=== PATIENT | male | born 1960 | race African-American/Black ===

== ENCOUNTER → 2020-05-01 | Outpatient (CLI) | payer OTHER ==
[2015-07-09 03:08] VITALS: BP 154/86
[~2020-05-01] MED LIST: AMLO-187 PO; ASPI325T8 PO; TIZA4TAB2 PO; TRAM50TA PO
--- NOTE | 2020-05-01 15:38 | PDOC1 ---
INITIAL PAIN CONSULT DATE OF SERVICE: DOS: DATE: 05/01/20 TIME: 15:29 CHIEF COMPLAINT: Chief Complaint: Neck and left upper extremity pain and weakness HISTORY OF PRESENT ILLNESS: 59-year-old male presents history of pain and weakness left shoulder and upper extremity starting February 29, 2020 patient reports no specific injury or accident that he is aware of but the pain began to increase in the base the neck and shoulder now is more of a weakness and inability to abduct his shoulder past about 45 to 50 degrees on the left side only. Patient reports the pain is better but the weakness has become more noticeable patient is seeing orthopedist for evaluation of the shoulder as well as neurosurgery do an MRI scan of the cervical spine which shows C4-5 mild to space narrowing with broad-based posterior disc osteophyte formation resulting in minimal flattening of the ventral thecal sac with minimal bilateral uncovertebral osteophyte formation and mild left foraminal narrowing C5-6 shows mild to space narrowing as well with trace of disc bulging without focal disc herniation or significant central canal stenosis with left uncovertebral osteophyte formation resulting in moderate left foraminal narrowing as well. This is true at the C7-T1 with minimal left foraminal narrowing from endplate osteophyte formation as well. 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 Patient has no symptoms on the right upper extremity. Patient has been doing stretching strength exercises on his own without decrease in pain also has been trying [id number] analgesics such as Tylenol and Motrin again with minimal decrease in pain with either of these. PAST MEDICAL HISTORY: PMH: Hypertension, hearing loss, arthritis, kidney stones PREVIOUS SURGERIES: Past Surgical Hx: No previous surgeries CURRENT MEDICATIONS: Current Meds: Active Scripts Medications Dose Route/Sig Max Daily Dose Days Date Category Aspirin 325 Mg Tablet 325 Mg PO 3X/WEEK 05/01/20 Reported Tizanidine Hcl 4 Mg Tablet 4 Mg PO QID PRN 05/01/20 Reported Tramadol Hcl 50 Mg Tablet 50 Mg PO DAILY PRN 05/01/20 Reported Amlodipine Besylate 10 Mg Tablet 10 Mg PO DAILY 05/01/20 Reported ALLERGIES; Allergies: Coded Allergies: No Known Drug Allergies (Unverified , 01/15/14) FAMILY HISTORY: Family Hx: No major medical problems or conditions that he is aware of SOCIAL HISTORY: Social Hx: Patient drinks alcohol about 2 drinks a week, smokes half a pack of cigarettes a day on average does not use any illegal illicit or recreational drugs is lives with his spouse lives locally and [place], [place] 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 REVIEW OF SYSTEMS: ROS: Positive for those items mentioned in history of present illness, all systems are reviewed, otherwise negative, is complete full and well-documented on patient's chart PHYSICAL EXAM: VS: Blood pressure is 144/94 pulse 88 respirations 16 temperature is 98.2 F height is 5 feet 10 inches weight is 242 pounds PE: PHYSICAL EXAMINATION: GENERAL: The patient is awake, alert, oriented, appropriate, very pleasant demeanor HEENT: Shows normocephalic, atraumatic. Extraocular movements are intact and symmetrical. Oral cavity: Mucous membranes moist and pink. Dentition is intact. NECK: Shows anterior throat supple without palpable lymphadenopathy noted. Swallow reflex symmetrical. CHEST: Shows normal on inspection. Breath sounds are clear bilaterally, no rales rhonchi wheezes auscultated. HEART: Shows S1, S2 clear. No murmurs auscultated. ABDOMEN: Soft, nontender, nondistended, obese. No palpable organomegaly is noted. No rebound or guarding demonstrated. BACK: Shows spine grossly in the midline. Normal-appearing cervical lordotic curvature. Cervical spine shows normal-appearing paraspinous musculature and symmetrical with mild tenderness with palpation in the inferior aspect of the cervical paraspinous posture on the left only but without trigger points without asymmetry without atrophy or hypertrophy. There is slightly increased thoracic kyphosis, some minor flattening of the lumbar lordotic curvature. EXTREMITIES: Upper extremities show deep tendon reflexes 2+ in the bicep and tricep tendons. Motor exam is 5 on a scale of 5 with right rib strength, biceps and triceps flexion and 5/5 on the left. Patient's left shoulder shows inability to abduct past about 45 degrees but is not significantly painful. Right side shows full range of motion. Patient is unable to raise his arm over his head as well on the left side without assistance but again without increased pain. Patient shows no significant tenderness with palpation over the anterior posterior lateral deltoid likewise no pain over the supraspinatus or infraspinatus musculature as well. Peripheral pulses are 2+ radial. No peripheral edema is noted bilaterally.. SKIN: Shows warm and dry, good turgor. No edema. No sores, rashes or bruising throughout. IMPRESSION: Impression: 59-year-old male with 2-month history pain left shoulder and upper extremity with significant motor weakness and radicular component C4-5 and C5-6 MRI scan cervical spine as noted Arthritis Hypertension Plan: Options were discussed with the patient including several medical management physical therapy as well as interventional techniques. Patient would like to pursue interventional techniques as he has been doing physical therapy exercises stretching strengthening on his own without significant increase in mobility or decrease in pain. We discussed a cervical epidural steroid injection using description as well as anatomical models to describe the procedure. Patient will wait for his preauthorization with his insurance provider and we will have him return for cervical epidural steroid injection at that time. In the meantime patient will continue with strengthening stretching exercises and trying to keep the mobility as best he can with the left upper extremity and neck. JULIA HARKINS MD May 01, 2020 15:38
== END | disposition home or self-care (01) ==
LOC: PNCL 13:12
PROVIDERS: ATTEND Anesthesiology
DX: M54.2 Cervicalgia (principal); M79.602 Pain in left arm; R53.1 Weakness; I10 Essential (primary) hypertension; M19.90 Unspecified osteoarthritis, unspecified site; F17.210 Nicotine dependence, cigarettes, uncomplicated; Z79.82 Long term (current) use of aspirin; Z79.899 Other long term (current) drug therapy; Z98.890 Other specified postprocedural states
CPT/HCPCS: G0463

== ENCOUNTER → 2020-05-02 | Outpatient (CLI) | payer OTHER ==
[2015-07-09 03:08] VITALS: BP 154/86
[~2020-05-02] MED LIST changes: +IOHEXOL 180 MG/ML 10 ML VIAL. ONE; +methylPREDNISolone ACETATE 40 MG/ML VIAL. ONE; +methylPREDNISolone ACETATE 80 MG/ML VIAL. ONE
--- NOTE | 2020-05-02 10:23 | PDOC ---
Progress Note - Pain Clinic Date of Service: DOS: DATE: 05/02/20 TIME: 10:18 Diagnosis: Dx: Cervical radiculopathy with cervical degenerative disc disease History or Present Illness: HPI: 59-year-old male returns after evaluation yesterday and preauthorization which was obtained later yesterday for cervical epidural steroid injection. Patient reports still significant weakness in the left shoulder and upper extremity would like to proceed today. Patient reports his pain is a 2 on a scale of 10 overnight the worst least an average is 2 this morning but his weakness and fatigability of the left shoulder and arm is his main complaint. Patient repo rts no new motor or sensory deficits no new changes since yesterday. Physical Exam: VS: Blood pressure 160/98 pulse is 84 respirations 16 temperature is 98.1 F height is 5 feet 10 inches weight is 242 pounds PE: PHYSICAL EXAMINATION: GENERAL: The patient is awake, alert, oriented, appropriate, very pleasant demeanor HEENT: Shows normocephalic, atraumatic. Extraocular movements are intact and symmetrical. NECK: Shows anterior throat supple without palpable lymphadenopathy noted. CHEST: Shows normal on inspection. BACK: Shows spine grossly in the midline. Normal-appearing cervical lordotic curvature. Cervical paraspinous muscles show symmetrical on inspection with palpation some mild tenderness in the inferior aspect of the cervical paraspinous muscles on the left and the superior medial trapezius but only diffusely without trigger points or radiation. Patient has full rotation motion cervical spine both laterally as well as extension flexion without significant increase in pain or discomfort. There is slightly increased thoracic kyphosis, some minor flattening of the lumbar lordotic curvature. EXTREMITIES: Upper extremities show deep tendon reflexes 2+ in the biceps and triceps tendons. Motor exam is 5 on a scale of 5 with right strength, biceps and triceps flexion and 5/5 on the left. Peripheral pulses are 2+ radial. No peripheral edema is noted bilaterally. SKIN: Shows warm and dry, good turgor. No edema. No sores, rashes or bruising throughout. Procedure: Procedure: Options were discussed with the patient. Patient's old chart was reviewed his current medication regimen updated current review of systems updated today as well. We will proceed with a cervical epidural steroid injection today with fluoroscopic guidance. Risks were discussed including but not limited to: Bleeding, infection, possibility of epidural hematoma and subsequent neurological compromise, dural puncture, headaches, spinal cord and/or nerve damage, side effects of steroid medication, and poor results regarding pain control. Patient understands wished to proceed. Patient will return to clinic in approximate 2 weeks for follow-up was counseled as to return appointment activity level and side effects to be aware of. Medication Injected: Med Injected: Procedure cervical epidural steroid injection at the C6-7 level, using local anesthetic under sterile prep and drape using C-arm fluoroscopic guidance under local anesthesia medications injected ; 120 mg Depo-Medrol + 5 mL normal saline and 2 mL contrast; condition at discharge is stable patient tolerated procedure well. and had no complications Condition at Discharge: Condition at Discharge: Condition at discharge is stable, patient tolerated the procedure well and had no complications. JULIA HARKINS MD May 02, 2020 10:23
== END | disposition home or self-care (01) ==
LOC: PNCL 09:08
PROVIDERS: ATTEND Anesthesiology
DX: M50.10 Cervical disc disorder with radiculopathy, unspecified cervical region (principal); F17.210 Nicotine dependence, cigarettes, uncomplicated; Z79.82 Long term (current) use of aspirin; Z79.899 Other long term (current) drug therapy
CPT/HCPCS: 62321; J1030; J1040; Q9965

== ENCOUNTER → 2020-05-20 | Outpatient (CLI) | payer OTHER ==
[2015-07-09 03:08] VITALS: BP 154/86
--- NOTE | 2020-05-20 09:26 | PDOC ---
Progress Note - Pain Clinic Date of Service: DOS: DATE: 05/20/20 TIME: 09:23 Diagnosis: Dx: Cervical radiculopathy with cervical degenerative disc disease History or Present Illness: HPI: 59-year-old male returns follow-up status post cervical epidural to injection x1. 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 Patient rates the pain a 2 on scale 10 is worst average and least and is a 2 today. Patient reports no new motor or sensory deficits no new changes. Physical Exam: VS: Blood pressure is 180/118 pulse 90 respirations 18 temperature 90.1 F height 5 feet 10 inches weight is 242 pounds PE: PHYSICAL EXAMINATION: GENERAL: The patient is awake, alert, oriented, appropriate, very pleasant demeanor HEENT: Shows normocephalic, atraumatic. Extraocular movements are intact and symmetrical. Oral cavity: Mucous membranes moist and pink. NECK: Shows anterior throat supple without palpable lymphadenopathy noted. Swallow reflex symmetrical. CHEST: Shows normal on inspection. Breath sounds are clear bilaterally. HEART: Shows S1, S2 clear. No murmurs. ABDOMEN: Soft, nontender, nondistended. No palpable organomegaly is noted. No rebound or guarding demonstrated. BACK: Shows spine grossly in the midline. Normal-appearing cervical lordotic curvature. Cervical paraspinous muscles show symmetrical with inspection on palpation some moderate tenderness diffusely but only in the inferior aspect the cervical paraspinous muscles more on the left than the right but without asymmetry without atrophy or hypertrophy no trigger points or radiation. Patient shows good rotation motion of the cervical spine both laterally as well as full extension full forward flexion without significant increase in pain. There is slightly increased thoracic kyphosis, some minor flattening of the lumbar lordotic curvature. EXTREMITIES: Upper extremities show deep tendon reflexes 2+ in the biceps and triceps tendons. 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 Peripheral pulses are 2+ radial. No peripheral edema is noted bilaterally. Upper extremities are warm and dry to touch, equal in color and appearance. SKIN: Shows warm and dry, good turgor. No edema. No sores, rashes or bruising throughout. Procedure: Procedure: Options were discussed with the patient. Patient will chart reviews his current medication regimen updated current review of systems updated today as well. We will proceed with a second in a series cervical epidural steroid injection today. Risks were discussed including but not limited to: Bleeding, infection, possibility of epidural hematoma and subsequent neurological compromise, dural puncture, headaches, spinal cord and/or nerve damage, side effects of steroid medication, and poor results regarding pain control. Patient understands wished to proceed. Patient will return to clinic in approximate 2 weeks for follow-up, was counseled as return appointment activity level and side effects to be aware of. Medication Injected: Med Injected: Procedure cervical epidural steroid injection at the C6-7 level, using local anesthetic under sterile prep and drape using C-arm fluoroscopic guidance under local anesthesia medications injected ; 120 mg Depo-Medrol + 5 mL normal saline and 2 mL contrast; condition at discharge is stable patient tolerated procedure well. and had no complications Condition at Discharge: Condition at Discharge: Condition at discharge is stable, patient tolerated procedure well and had no complications. JULIA HARKINS MD May 20, 2020 09:26
== END | disposition home or self-care (01) ==
LOC: PNCL 08:29
PROVIDERS: ATTEND Anesthesiology
DX: M50.123 Cervical disc disorder at C6-C7 level with radiculopathy (principal); Z98.890 Other specified postprocedural states
CPT/HCPCS: 62321; J1030; J1040; Q9965

== ENCOUNTER 2020-10-11 12:49 | Emergency (ER) | payer OTHER ==
[~2020-10-11] VITALS: Ht 177.8 cm; Wt 110.4 kg
[~2020-10-11 12:49] MED LIST changes: -IOHEXOL 180 MG/ML 10 ML VIAL. ONE; -methylPREDNISolone ACETATE 40 MG/ML VIAL. ONE; -methylPREDNISolone ACETATE 80 MG/ML VIAL. ONE
[2020-10-11 14:36] VITALS: BP 174/83
[2020-10-11] MEDS ORDERED: KETOROLAC 30 MG/ML VIAL. IM ONE (15:00)
[2020-10-11] MEDS ORDERED: ORPHENADRINE CITRATE 60 MG/2 ML VIAL. IM ONE (15:00)
--- NOTE | 2020-10-11 15:56 | RAD ---
EXAM: Lumbar spine CT without contrast. HISTORY: Lower back pain. Right sided sciatica. TECHNIQUE: Computed tomographic images of the lumbar spine were obtained without contrast. Multiplana r reformatting was performed. *One or more of the following individualized dose reduction techniques were utilized for this examina tion: 1. Automated exposure control. 2. Adjustment of the mA and/or kV according to patient size. 3. Use of iterative reconstruction technique. COMPARISON: None. FINDINGS: There is mild lumbar scoliosis. There is multilevel endplate remodeling. There is and mild disc space narrowing at L2-L3 and L3-L4. There is no fracture or suspicious osseous lesion. There is degenerative spurring and there are bridging osteophytes involving the left sacroiliac joint. There a re suspected erosive changes involving the right sacroiliac joint. At L1-L2, there is mild bilateral facet arthropathy. There is no stenosis. At L2-L3, there is a right lateral predominant disc bulge and endplate osteophytosis. There is mild l eft greater than right facet arthropathy. There is mild right foraminal stenosis. There is mild centr al canal stenosis. At L3-L4, there is a left lateral predominant disc bulge and endplate osteophytosis. There is mild le ft facet arthropathy. There is mild right and moderate left foraminal stenosis. There is mild central canal stenosis. At L4-L5, there is a left foraminal disc osteophyte complex superimposed on a left lateral predominan t disc bulge and endplate remodeling. There is mild to moderate right and moderate left foraminal magan nosis. There is mild to moderate central canal stenosis. At L5-S1, there is a disc bulge. There is mild right foraminal stenosis. IMPRESSION: 1. Multilevel degenerative change involving the lumbar spine, described in detail above. This results in stenosis at the aforementioned levels. 2. Degenerative change involving the sacroiliac joints and superimposed right sacroiliac joint erosio ns suggesting a component of sacroiliitis. Electronically signed by: Lizy Shukla MD (10/11/2020 3:54 PM) [id number]
--- NOTE | 2020-10-11 16:08 | ED.ADGEN ---
Past Medical History Past Medical History: High Cholesterol, Hypertension Past Surgical History: No Surgical History Smoking Status: Current Every Day Smoker Alcohol Use: Occasionally Drug Use: None General Adult EDM: Chief Complaint: LOWER EXT PAIN HPI: HPI: Patient is a 60 year old AA male, accompanied by his , who presents emergency department with complaints of right lower back pain that radiates down his right leg with a numb and tingling sensation down the lateral aspect of his leg that began 4 days ago. Patient denies any saddle anesthesia or loss of bowel/bladder control. He states he was seen at his primary care doctors office a few days ago where he had negative x-rays and received a shot. Patient reports he was also prescribed hydrocodone, he has been taking the medication with no relief of his pain. He denies any fever, cough, shortness of breath, abdominal pain, nausea, vomiting, diarrhea, body aches, or fatigue. 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 He denies any known injury or recent falls. He currently rates pain a 6 out of 10 on the pain scale at rest, the pain increases to 10 out of 10 with movement. Review of Systems: Review of Systems: Complete ROS is negative unless otherwise noted in HPI. Current Medications: Current Medications Medications (Trade) Dose Ordered Sig/[facility] Start Time Stop Time Status Last Admin Dose Admin Ketorolac Tromethamine (Toradol 30mg Vial) 30 mg 1X ONCE 10/11/20 15:00 10/11/20 15:08 DC 10/11/20 15:23 30 MG Orphenadrine Citrate (Norflex) 60 mg 1X ONCE 10/11/20 15:00 10/11/20 15:08 DC 10/11/20 15:23 60 MG Allergies: Allergies: Allergies Coded Allergies Type Severity Reaction Last Updated Verified No Known Drug Allergies 01/15/14 No Physical Exam: PE: See Above Constitutional: Well developed, well nourished, no acute distress, non-toxic appearance. [] HENT: Normocephalic, atraumatic, bilateral external ears normal, nose normal. [] Eyes: PERRLA, EOMI, conjunctiva normal, no discharge. [] Neck: Normal range of motion, no stridor. [] Cardiovascular:Heart rate regular rhythm Lungs & Thorax: Respirations even and unlabored, no retractions, no respiratory distress Abdomen: soft, no tenderness Back: No bony tenderness or deformity, increased pain with right straight leg lift, Skin: Warm, dry, no erythema, no rash. [] Extremities: No cyanosis, ROM intact, no edema. [] Neurologic: Alert and oriented X 3, normal motor, normal sensory, no focal deficits noted. [] Psychologic: Affect normal, judgement normal, mood normal. [] Current Patient Data: Vital Signs: Vital Signs Date Time Temp Pulse Resp B/P (MAP) Pulse Ox O2 Delivery O2 Flow Rate FiO2 10/11/20 14:36 97.9 85 18 174/83 (113) 97 Room Air 97.9 EKG: EKG: [] Heart Score: C/O Chest Pain: No Risk Scores: Score 0 - 3: 2.5% MACE over next 6 weeks - Discharge Home Score 4 - 6: 20.3% MACE over next 6 weeks - Admit for Clinical Observation Score 7 - 10: 72.7% MACE over next 6 weeks - Early Invasive Strategies Radiology/Procedures: Radiology/Procedures: PROCEDURE: CT LUMBAR SPINE WO CONTRAST EXAM: Lumbar spine CT without contrast. HISTORY: Lower back pain. Right sided sciatica. TECHNIQUE: Computed tomographic images of the lumbar spine were obtained without contrast. Multiplanar reformatting was performed. *One or more of the following individualized dose reduction techniques were utilized for this examination: 1. Automated exposure control. 2. Adjustment of the mA and/or kV according to patient size. 3. Use of iterative reconstruction technique. COMPARISON: None. FINDINGS: There is mild lumbar scoliosis. There is multilevel endplate remodeling. There is and mild disc space narrowing at L2-L3 and L3-L4. There is no fracture or suspicious osseous lesion. There is degenerative spurring and there are bridging osteophytes involving the left sacroiliac joint. There are suspected erosive changes involving the right sacroiliac joint. At L1-L2, there is mild bilateral facet arthropathy. There is no stenosis. At L2-L3, there is a right lateral predominant disc bulge and endplate osteophytosis. There is mild left greater than right facet arthropathy. There is mild right foraminal stenosis. There is mild central canal stenosis. At L3-L4, there is a left lateral predominant disc bulge and endplate osteophytosis. There is mild left facet arthropathy. There is mild right and moderate left foraminal stenosis. There is mild central canal stenosis. At L4-L5, there is a left foraminal disc osteophyte complex superimposed on a left lateral predominant disc bulge and endplate remodeling. There is mild to moderate right and moderate left foraminal stenosis. There is mild to moderate central canal stenosis. At L5-S1, there is a disc bulge. There is mild right foraminal stenosis. IMPRESSION: 1. Multilevel degenerative change involving the lumbar spine, described in detail above. This results in stenosis at the aforementioned levels. 2. Degenerative change involving the sacroiliac joints and superimposed right sacroiliac joint erosions suggesting a component of sacroiliitis. Electronically signed by: Lizy Shukla MD (10/11/2020 3:54 PM) [id number] [] Course & Med Decision Making: Course & Med Decision Making Pertinent Labs and Imaging studies reviewed. (See chart for details) [] Dragon Disclaimer: Dragon Disclaimer: This electronic medical record was generated, in whole or in part, using a voice recognition dictation system. Departure Departure Impression: Primary Impression: Low back pain Disposition: 01 HOME / SELF CARE / HOMELESS Condition: STABLE Referrals: HALIMA LANIER (PCP) Patient Instructions: Back Pain, Adult, [id number] Additional Instructions: Fill the prescription(s) and use as directed. Apply heat or ice for to sore areas as needed for comfort. Activity as tolerated. Follow up with your primary care doctor this week for further evaluation and treatment, return to the ER if symptoms worsen or you develop a fever. Scripts Naproxen (NAPROXEN) 500 Mg Tablet 1 TAB PO BID PRN for PAIN for 10 Days, #20 TAB 0 Refills Prov: SHERYL BAE APRN 10/11/20 Problem Qualifiers Primary Impression: Low back pain Chronicity: acute Back pain laterality: midline Sciatica presence: with sciatica Sciatica laterality: sciatica of right side Qualified Codes: M54.41 - Lumbago with sciatica, right side SHERYL BAE FISHER NET October 11, 2020 16:08
[2020-10-11] MEDS ORDERED: NAPR-514 PO (16:19)
== END 2020-10-11 16:29 | disposition home or self-care (01) ==
LOC: ER 12:49
DX: M54.41 Lumbago with sciatica, right side (principal); E78.00 Pure hypercholesterolemia, unspecified; I10 Essential (primary) hypertension; F17.200 Nicotine dependence, unspecified, uncomplicated
CPT/HCPCS: 72131; 96372; 99284; J1885; J2360

== ENCOUNTER → 2020-10-28 | Outpatient (CLI) | payer OTHER ==
[2020-10-11 14:36] VITALS: BP 174/83
[~2020-10-28] MED LIST changes: +CRESTOR40 MG PO; +MELO15TA23 PO; +NAPR-514 PO; +TADA5TAB PO
--- NOTE | 2020-10-28 15:01 | KCIC ---
EXAM: Lumbar spine MRI without contrast. HISTORY: Radiculopathy. TECHNIQUE: Multiplanar, multisequence magnetic resonance imaging of the lumbar spine was performed wi thout contrast. COMPARISON: 10/11/2020. FINDINGS: There is mild lumbar scoliosis. There is no significant listhesis. There is multilevel endp late remodeling with disc space narrowing and disc desiccation. There is relative preservation of the disc spaces at L1-L2 and L5-S1. There are few osseous hemangiomas. There is no suspicious osseous le catarina. There is no fracture. There is prominent epidural fat at the lumbar levels, primarily the lumbo sacral junction. The conus terminates at L1. At L1-L2, there is no stenosis. At L2-L3, there is a right lateral predominant disc bulge and endplate osteophytosis. There is mild b ilateral facet arthropathy. There is prominent epidural fat. There is no stenosis. At L3-L4, there is a left foraminal to extra foraminal disc osteophyte complex superimposed on a left lateral predominant disc bulge and endplate osteophytosis. There is mild bilateral facet arthropathy . There is prominent epidural fat. There is mild left greater than right foraminal stenosis with abut ment the exiting left greater than right L3 nerve roots. There is mild central canal stenosis. At L4-L5, there are broad-based bilateral foraminal disc protrusions and annular tears superimposed o n a disc bulge and endplate remodeling. There is mild bilateral facet arthropathy. There is prominent epidural fat. There is mild bilateral foraminal stenosis with abutment the exiting left greater than right L4 nerve roots. At L5-S1, there is prominent epidural fat resulting in mild narrowing of the thecal sac. IMPRESSION: 1. Multilevel degenerative change involving the lumbar spine, described in detail above. This results in mild foraminal and central canal stenosis at the aforementioned levels. 2. No acute osseous finding. Electronically signed by: Lizy Shukla MD (10/28/2020 2:59 PM) [id number]
== END ==
LOC: KCIC MRI 13:53
PROVIDERS: ATTEND Neurological Surgery
DX: M47.26 Other spondylosis with radiculopathy, lumbar region (principal); M48.07 Spinal stenosis, lumbosacral region
CPT/HCPCS: 72148

== ENCOUNTER → 2020-11-04 | Outpatient (CLI) | payer OTHER ==
[2020-10-11 14:36] VITALS: BP 174/83
--- NOTE | 2020-11-04 13:46 | PDOC ---
Progress Note - Pain Clinic Date of Service: DOS: DATE: 11/04/20 TIME: 13:38 Diagnosis: Dx: Lumbar radiculopathy with lumbar degenerative disease and lumbar spinal stenosis Cervical radiculopathy with cervical degenerative disc disease History or Present Illness: HPI: 60-year-old male returns with complaints of pain low back and right lower extremity since October 09, 2020. Patient reports he was working and getting out of his cab of his truck noticed significant pain in the low back and radiating to the right lower extremity patient reports that radiating part was coming more noticeable and has had significant radiation of the posterior gluteus posterior lateral thigh lateral anterior thigh anteromedial thigh medial lower leg into the calf and medial calf as well as the foot and the sole of the foot patient reports is a 10 on scale 10 is worst over the past week 10 on average 10 its least is a 10 today patient scribes aching sharp shooting dull and aching in the back cramping and stabbing in the back with radiating pain in the right lower extremity as noted. Patient reports its worse with changing positions standing standing upright sitting for prolonged periods and is disturbing sleep significantly about every 2-3 hours. Patient has done physical therapy in the past and is doing the stretching strength exercises currently that he learned when he had some issues with his neck and shoulders and is currently doing some stretching with the low back daily also trying to walk daily but is becoming more difficult for him to do this because of the pain. Patient describes the pain as radiating in the L4-5 dermatomal distribution in the right lower extremity with radicular symptoms. 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 Patient is been taking [id number] ibuprofen as well as naproxen and also Tylenol has not been helping very significantly. Patient was given Percocet by his primary physician which was not very helpful as well. Physical Exam: VS: Blood pressure is 157/109 pulse 81 respirations are 18 height 5 feet 10 inches weight is 240 pounds PE: PHYSICAL EXAMINATION: GENERAL: The patient is awake, alert, oriented, appropriate, very pleasant demeanor HEENT: Shows normocephalic, atraumatic. Extraocular movements are intact and symmetrical. Oral cavity: Mucous membranes moist and pink. Dentition is intact. NECK: Shows anterior throat supple without palpable lymphadenopathy noted. Swallow reflex symmetrical. CHEST: Shows normal on inspection. Breath sounds are clear bilaterally, no rales or rhonchi auscultated. HEART: Shows S1, S2 clear. No murmurs auscultated. ABDOMEN: Soft, nontender, nondistended, obese. No palpable organomegaly is noted. BACK: Shows spine grossly in the midline. Normal-appearing cervical lordotic curvature. There is slightly increased thoracic kyphosis, some minor flattening of the lumbar lordotic curvature. Lumbar paraspinous muscles show symmetrical on inspection, on palpation shows some moderate tenderness diffusely throughout the upper, middle and lower distribution of the paraspinous muscles without specific trigger points, without radiation of pain. The patient has good rotational motion of the lumbar spine, both laterally as well as extension and flexion without significant difficulty. No tenderness over the spinous processes, sacrum or sacroiliac regions. EXTREMITIES: Lower extremities show deep tendon reflexes 2+ in the patellar and tendo calcaneus tendons. Motor exam is 4 on a scale of 5 with right dorsiflexion, extension, quadriceps and hamstring flexion and 5/5 on the left. Peripheral pulses are 1+ posterior tibial. No peripheral edema is noted bilaterally. Lower extremities are warm and dry to touch, equal in color and appearance. Straight leg raise noted to be positive on the right about 40 degrees, left side is negative. Gaenslen's and Niles's maneuvers are negative bilaterally. SKIN: Shows warm and dry, good turgor. No edema. No sores, rashes or bruising throughout. Procedure: Procedure: Options were discussed with the patient. Patient's old chart was reviewed his current medication regimen updated current review of systems updated today as well. We will preauthorize patient for lumbar epidural steroid injection translaminar approach at the L4-5 level. Patient has radicular symptoms in the L4-5 distribution of the right lower extremity despite doing physical therapy stretches and strength exercises and artm-svo-eizgbeh as well as prescription medications. Recommended patient continue with the stretching strength exercises and gxar-far-lcfbayd analgesics especially nonsteroidal anti- inflammatory drugs. Once approved we will have patient return for a translaminar L4-5 level lumbar epidural steroid injection. Medication Injected: Med Injected: None Condition at Discharge: Condition at Discharge: Condition at discharge is stable. JULIA HARKINS MD Nov 04, 2020 13:46
== END | disposition home or self-care (01) ==
LOC: PNCL 12:34
PROVIDERS: ATTEND Anesthesiology
DX: M51.16 Intervertebral disc disorders with radiculopathy, lumbar region (principal); M48.061 Spinal stenosis, lumbar region without neurogenic claudication; M50.10 Cervical disc disorder with radiculopathy, unspecified cervical region; F17.210 Nicotine dependence, cigarettes, uncomplicated; Z79.82 Long term (current) use of aspirin; Z79.899 Other long term (current) drug therapy; Z72.89 Other problems related to lifestyle
CPT/HCPCS: 99212; G0463

== ENCOUNTER → 2020-11-07 | Outpatient (CLI) | payer OTHER ==
[2020-10-11 14:36] VITALS: BP 174/83
[~2020-11-07] MED LIST changes: +IOHEXOL 180 MG/ML 10 ML VIAL. ONE; +methylPREDNISolone ACETATE 40 MG/ML VIAL. ONE; +methylPREDNISolone ACETATE 80 MG/ML VIAL. ONE
--- NOTE | 2020-11-07 14:01 | PDOC ---
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 Patient describes the pain is radiating in the right leg and follows roughly an L4 and L5-S1 dermatomal distribution in the right lower extremity. Patient reports exacerbated by standing changing positions bending stooping getting up and down out of his truck at work as well as weightbearing and standing for prolonged periods greater than 10 to 15 minutes. Patient reports is better with sitting or laying down still awakens him from sleep about 2-3 times a night patient rates pain is a 10 on scale 10 at all times worst least and average over the past week and is a 10 today. Patient reports no new motor or sensory deficits no bowel or bladder incontinence but still significant pain in the low back right lower extremity described as tingling stabbing in the back sharp and shooting in the lower extremity that can be severe and unbearable with activity especially bending stooping climbing putting all his weight on his right lower extremity and driving. Physical Exam: VS: Blood pressure is 150/98 pulse 94 respirations are 16 temperature 98.1 F height is 5 feet 10 inches weight is 236 pounds PE: PHYSICAL EXAMINATION: GENERAL: The patient is awake, alert, oriented, appropriate, very pleasant in demeanor. HEENT: Shows normocephalic, atraumatic. Extraocular movements are intact and symmetrical. Oral cavity: Mucous membranes moist and pink. NECK: Shows anterior throat supple without palpable lymphadenopathy noted. Swallow reflex symmetrical. CHEST: Shows normal on inspection. Breath sounds are clear bilaterally. HEART: Shows S1, S2 clear. No murmurs auscultated. ABDOMEN: Soft, nontender, nondistended. BACK: Shows spine grossly in the midline. Normal-appearing cervical lordotic curvature. There is slightly increased thoracic kyphosis, some minor flattening of the lumbar lordotic curvature. Lumbar paraspinous muscles show symmetrical on inspection, on palpation shows some moderate tenderness diffusely throughout the upper, middle and lower distribution of the paraspinous muscles without specific trigger points, without radiation of pain. The patient has good rotat ional motion of the lumbar spine, both laterally as well as extension and flexion with moderate tenderness and pain with rotation both laterally greater than 10 degrees as well as extension and forward flexion with pain reported in all directions of movement of the lumbar spine. No tenderness over the spinous processes, sacrum or sacroiliac regions. EXTREMITIES: Lower extremities show deep tendon reflexes 5 in the patellar and tendo calcaneus tendons. Motor exam is 4 on a scale of 5 with right dorsiflexio n, extension, quadriceps and hamstring flexion and 5/5 on the left. Peripheral pulses are 1+ posterior tibial. No peripheral edema is noted bilaterally. Lower extremities are warm and dry to touch, equal in color and appearance. . SKIN: Shows warm and dry, good turgor. No edema. No sores, rashes or bruising throughout. Procedure: Procedure: Options discussed with the patient. Patient chart was reviewed his his current medication regimen updated current review of systems updated today as well. We will proceed with a lumbar epidural steroid injection stable fluoroscopic guidance. Risks were discussed including but not limited to: Bleeding, infection, possibility of epidural hematoma and subsequent neurological compromise, dural puncture, headaches, spinal cord and/or nerve damage, side effects of steroid medication, and poor results regarding pain control. Patient understands and wished to proceed. Patient will return to the clinic in approximate 2 weeks for follow-up, was counseled as return appointment activity level and side effects to be aware of. Patient is encouraged to follow restrictions while at work including: no extended standing greater than 10 minutes, no stooping, bending, rotation of the back while lifting, not to lift greater than 15 pounds, no climbing, crouching, crawling. Patient will return to clinic in approximately 1-1/2 weeks for reevaluation and potential reinjection at that time if still significantly symptomatic with a radicular pain in the low back and right lower extremity. Medication Injected: Med Injected: Procedure is lumbar epidural steroid injection under local anesthetic using sterile prep and drape at the L4-5 level using C-arm fluoroscopic guidance in both AP and lateral views medications injected is 120 mg Depo-Medrol +10mL preservative-free normal saline and 2 mL contrast- condition at discharge is stable patient tolerated procedure well had no complications. Condition at Discharge: Condition at Discharge: Condition at discharge stable, patient tolerated the procedure well and had no complications. JULIA HARKINS MD Nov 07, 2020 14:01
--- NOTE | 2020-11-07 14:01 | PDOC4 ---
PROCEDURE Procedure Patient was consented for lumbar epidural steroid injection. Risks were dis cussed including but not limited to: Bleeding, infection, possibility of epidural hematoma and subsequent neurological compromise, dural puncture, headaches, spinal cord and/or nerve damage, side effects of steroid medication, and poor results regarding pain control. Patient understands and wished to proceed. Procedure is lumbar epidural steroid injection under local anesthetic using sterile prep and drape at the L4-5 level using C-arm fluoroscopic guidance in both AP and lateral views medications injected is 120 mg Depo-Medrol +10mL preservative-free normal saline and 2 mL contrast- condition at discharge is stable patient tolerated procedure well had no complications. JULIA HARKINS MD Nov 07, 2020 14:01
== END | disposition home or self-care (01) ==
LOC: PNCL 13:07
PROVIDERS: ATTEND Anesthesiology
DX: M51.16 Intervertebral disc disorders with radiculopathy, lumbar region (principal); M50.10 Cervical disc disorder with radiculopathy, unspecified cervical region; M48.061 Spinal stenosis, lumbar region without neurogenic claudication; F17.210 Nicotine dependence, cigarettes, uncomplicated; Z79.82 Long term (current) use of aspirin; Z79.899 Other long term (current) drug therapy; Z72.89 Other problems related to lifestyle
CPT/HCPCS: 62323; J1030; J1040; Q9965

== ENCOUNTER → 2020-11-19 | Outpatient (CLI) | payer OTHER ==
--- NOTE | 2020-11-19 15:38 | PDOC ---
Progress Note - Pain Clinic Date of Service: DOS: DATE: 11/19/20 TIME: 15:26 Diagnosis: Dx: Cervical radiculopathy with cervical degenerative disease Lumbar radiculopathy lumbar degenerative disease lumbar spinal stenosis History or Present Illness: HPI: 60-year-old male returns for follow-up status post lumbar epidural straight injection x1. Patient reports about 30% improvement overall in the low back and right lower extremity pain patient reports initially doing much better with walking doing household activities travel with greater ease doing work activities but over the past week or so the pain is returned still better than it was but still significant in the right lower extremity posterior gluteus posterior lateral thigh anterior thigh medial thigh medial lower leg and lateral lower leg patient describes as aching and sharp in the back shooting in the leg tingling and burning and stabbing in the back and legs well can be severe with walking and standing. Patient reports no new motor or sensory deficits no new bowel or bladder incontinence awaken from sleep about every 4-5 hours. Physical Exam: VS: Blood pressure is 143/93 pulse 87 respirations 18 temperature 98.2 F height is 5 feet 10 inches weight is 258 pounds PE: PHYSICAL EXAMINATION: GENERAL: The patient is awake, alert, oriented, appropriate, very pleasant in demeanor HEENT: Shows normocephalic, atraumatic. Extraocular movements are intact and symmetrical. Oral cavity: Mucous membranes moist and pink. Dentition is intact. NECK: Shows anterior throat supple without palpable lymphadenopathy noted. Swallow reflex symmetrical. CHEST: Shows normal on inspection. Breath sounds are clear bilaterally, no rales or rhonchi. HEART: Shows S1, S2 clear. No murmurs auscultated. ABDOMEN: Soft, nontender, nondistended, obese. BACK: Shows spine grossly in the midline. Normal-appearing cervical lordotic curvature. There is slightly increased thoracic kyphosis, some flattening of the lumbar lordotic curvature. Lumbar paraspinous muscles show symmetrical on inspection, on palpation shows some moderate tenderness diffusely throughout the upper, middle and lower distribution of the paraspinous muscles without specific trigger points, without radiation of pain. The patient has good rotational motion of the lumbar spine, both laterally as well as extension and flexion without significant difficulty. No tenderness over the spinous processes, sacrum or sacroiliac regions. EXTREMITIES: Lower extremities show deep tendon reflexes 2 in the patellar and tendo calcaneus tendons. Motor exam is 4 on a scale of 5 with right dorsiflexion, extension, quadriceps and hamstring flexion and 5/5 on the left. Peripheral pulses are 1+ posterior tibial. No peripheral edema is noted bilaterally. Lower extremities are warm and dry. SKIN: Shows warm and dry, good turgor. No edema. No sores, rashes or bruising throughout. Procedure: Procedure: Options were discussed with the patient. Patient chart reviews his current medication regimen updated current review of systems updated today as well. We will proceed with a second in the series lumbar epidural steroid injection today with fluoroscopic guidance. Risks were discussed including but not limited to: Bleeding, infection, possibility of epidural hematoma and subsequent neurological compromise, dural puncture, headaches, spinal cord and/or nerve damage, side effects of steroid medication, and poor results regarding pain control. Patient understands and wished to proceed. Patient will return to the clinic in approximate 2 weeks for follow-up, was counseled as to return appointment activity level and side effects to be aware of. Medication Injected: Med Injected: Procedure is lumbar epidural steroid injection under local anesthetic using sterile prep and drape at the L4-5 level using C-arm fluoroscopic guidance in both AP and lateral views medications injected is 120 mg Depo-Medrol +10mL preservative-free normal saline and 2 mL contrast- condition at discharge is stable patient tolerated procedure well had no complications. Condition at Discharge: Condition at Discharge: Condition at discharge stable, patient alert procedure well and had no complica tions. JULIA HARKINS MD Nov 19, 2020 15:37
--- NOTE | 2020-11-19 15:38 | PDOC4 ---
Procedure Note: Procedure Note: Patient was consented for lumbar epidural steroid injection. Risks were discussed including but not limited to: Bleeding, infection, possibility of epidural hematoma and subsequent neurological compromise, dural puncture, headaches, spinal cord and/or nerve damage, side effects of steroid medication, and poor results regarding pain control. Patient understands and wished to proceed. Procedure is lumbar epidural steroid injection under local anesthetic using sterile prep and drape at the L4-5 level using C-arm fluoroscopic guidance in both AP and lateral views medications injected is 120 mg Depo-Medrol +10mL preservative-free normal saline and 2 mL contrast- condition at discharge is stable patient tolerated procedure well had no complications. JULIA HARKINS MD Nov 19, 2020 15:38
== END | disposition home or self-care (01) ==
LOC: PNCL 14:07
PROVIDERS: ATTEND Anesthesiology
DX: M51.16 Intervertebral disc disorders with radiculopathy, lumbar region (principal); M48.061 Spinal stenosis, lumbar region without neurogenic claudication; M50.10 Cervical disc disorder with radiculopathy, unspecified cervical region; F17.210 Nicotine dependence, cigarettes, uncomplicated; Z79.82 Long term (current) use of aspirin; Z79.899 Other long term (current) drug therapy; Z72.89 Other problems related to lifestyle
CPT/HCPCS: 62323; J1030; J1040; Q9965

== ENCOUNTER → 2020-12-03 | Outpatient (CLI) | payer OTHER ==
--- NOTE | 2020-12-03 15:01 | PDOC ---
Progress Note - Pain Clinic Date of Service: DOS: DATE: 12/03/20 TIME: 14:56 Diagnosis: Dx: Lumbar radiculopathy with lumbar degenerative disease lumbar spinal stenosis Cervical radiculopathy with cervical degenerative disc disease History or Present Illness: HPI: 60-year-old male returns for follow-up status post lumbar epidural steroid injections x2. Patient reports about 75% better overall pain in the low back and right lower extremity still significant patient reports that the pain began to return after about the past 3 to 4 days and now is about 50% improvement today patient reports he is wishing to get back to work and would like a note stating such. Patient reports his pain is a 5 on a scale of 10 at all times worst least and average and is very manageable currently patient reports that shooting pain in the right lower extremity stabbing in the back on and off in intensity worse with walking standing changing positions better with sitting or lying down generally not awaken her from sleep at this time. Patient reports no recent injuries he continues to take his meloxicam as well as tizanidine and is taking new medication of Tylenol extra strength which is taken at night several times which he feels does help him sleep and reduce the pain as well. Patient reports no new motor or sensory deficits no bowel or bladder incontinence. Physical Exam: VS: Blood pressure is 170/97 pulse 85 respirations 18 temperature is 98.5 F height is 5 feet 10 inches weight is 238 pounds PE: PHYSICAL EXAMINATION: GENERAL: The patient is awake, alert, oriented, appropriate, very pleasant demeanor HEENT: Shows normocephalic, atraumatic. Extraocular movements are intact and symmetrical. NECK: Shows anterior throat supple without palpable lymphadenopathy noted. Swallow reflex symmetrical. CHEST: Shows normal on inspection. Breath sounds are clear bilaterally, distant but no rales or rhonchi. HEART: Shows S1, S2 clear. No murmurs auscultated. ABDOMEN: Soft, nontender, nondistended, obese. BACK: Shows spine grossly in the midline. Normal-appearing cervical lordotic curvature. There is slightly increased thoracic kyphosis, some flattening of the lumbar lordotic curvature. Lumbar paraspinous muscles show symmetrical on inspection, on palpation shows some moderate tenderness diffusely throughout the upper, middle and lower distribution of the paraspinous muscles without specific trigger points, without radiation of pain. The patient has good rotational motion of the lumbar spine, both laterally as well as extension and flexion without significant difficulty. EXTREMITIES: Lower extremities show deep tendon reflexes 2+ in the patellar and tendo calcaneus tendons. Motor exam is 4 on a scale of 5 with right dorsiflexion, extension, quadriceps and hamstring flexion and 5/5 on the left. Peripheral pulses are 1+ posterior tibial. No peripheral edema is noted bilate rally. Lower extremities are warm and dry. SKIN: Shows warm and dry, good turgor. No edema. No sores, rashes or bruising throughout. Procedure: Procedure: Options discussed with the patient. Patient chart reviewed his current medication regimen updated current review of systems updated today as well. We will proceed with a third of the series lumbar epidural steroid ejections today with fluoroscopic guidance. Risks were discussed including but not limited to: Bleeding, infection, possibility of epidural hematoma and subsequent neurological compromise, dural puncture, headaches, spinal cord and/or nerve damage, side effects of steroid medication, and poor results regarding pain control. Patient understands and wished to proceed. Patient will return to the clinic in approximate 2 weeks for follow-up, was counseled as to return appointment activity level and side effects to be aware of. Patient given note for work to return to full duty and plans to do that in approximately 1 week. Medication Injected: Med Injected: Procedure is lumbar epidural steroid injection under local anesthetic using sterile prep and drape at the L4-5 level using C-arm fluoroscopic guidance in both AP and lateral views medications injected is 120 mg Depo-Medrol +10mL preservative-free normal saline and 2 mL contrast- condition at discharge is stable patient tolerated procedure well had no complications. Condition at Discharge: Condition at Discharge: Condition at discharge stable, patient alert procedure well and had no complications. JULIA HARKINS MD Dec 03, 2020 15:00
--- NOTE | 2020-12-03 15:01 | PDOC4 ---
Procedure Note: Procedure Note: Patient was consented for lumbar epidural steroid injection. Risks were discussed including but not limited to: Bleeding, infection, possibility of epidural hematoma and subsequent neurological compromise, dural puncture, headaches, spinal cord and/or nerve damage, side effects of steroid medication, and poor results regarding pain control. Patient understands and wished to proceed. Procedure is lumbar epidural steroid injection under local anesthetic using sterile prep and drape at the 4 5 level using C-arm fluoroscopic guidance in both AP and lateral views medications injected is 120 mg Depo-Medrol +10mL preservative-free normal saline and 2 mL contrast- condition at discharge is stable patient tolerated procedure well had no complications. JULIA HARKINS MD Dec 03, 2020 15:01
== END | disposition home or self-care (01) ==
LOC: PNCL 13:46
PROVIDERS: ATTEND Anesthesiology
DX: M51.16 Intervertebral disc disorders with radiculopathy, lumbar region (principal); M50.10 Cervical disc disorder with radiculopathy, unspecified cervical region; M48.061 Spinal stenosis, lumbar region without neurogenic claudication; F17.210 Nicotine dependence, cigarettes, uncomplicated; Z79.82 Long term (current) use of aspirin; Z79.899 Other long term (current) drug therapy; Z98.890 Other specified postprocedural states; Z72.89 Other problems related to lifestyle
CPT/HCPCS: 62323; J1030; J1040; Q9965